=== PATIENT | female | born 1950 | race Two or more races ===

== ENCOUNTER 2025-01-10 12:20 | Emergency (ER) | payer OTHER ==
[~2025-01-10] VITALS: Ht 160 cm; Wt 93.9 kg
[2025-01-10] MEDS ORDERED: GLYXAMBI 25 MG1 EACH (12:53)
[2025-01-10] MEDS ORDERED: CALCITRIOL0.5 MCG (12:54)
[2025-01-10] MEDS ORDERED: PRILOSEC OTC20 MG (12:54)
[2025-01-10] MEDS ORDERED: LASIX20 MG (12:54)
[2025-01-10] MEDS ORDERED: KLOR-CON8 MEQ (12:54)
[2025-01-10] MEDS ORDERED: TOPROL XL100 M1 (12:55)
[2025-01-10] MEDS ORDERED: HYDROCHLOROTHIA25 MG (12:55)
[2025-01-10] MEDS ORDERED: LIPITOR40 M1 (12:55)
[2025-01-10] MEDS ORDERED: ATACAND32 MG (12:55)
[2025-01-10] MEDS ORDERED: ELIQUIS2.5 MG (12:56)
[2025-01-10] MEDS ORDERED: CARDURA XL4 MG (12:56)
[2025-01-10] MEDS ORDERED: UCERIS9 MG (12:56)
[2025-01-10] MEDS ORDERED: ANTIVERT25 M2 (12:56)
[2025-01-10] MEDS ORDERED: IPRATROPIUM BROMIDE 0.5 MG/2.5 ML AMPUL.NEB IH SCH (15:30)
[2025-01-10] MEDS ORDERED: LEVALBUTEROL HCL 1.25 MG/3 ML SOLUTION IH SCH (15:30)
[2025-01-10] MEDS ORDERED: GUAIFENESIN/DEXTROMETHORPHAN 100MG/10ML BLIST.PACK PO ONE (15:45)
[2025-01-10] MEDS ORDERED: BUDESONIDE 0.5 MG/2 ML AMPUL.NEB IH ONE (15:45)
[2025-01-10 16:40] LABS: BASO % 1.5 % (0.1-1.2); EOS # 0.46 (0.04-0.54); EOS % 5.4 % (0.7-7.0); LYMPH # 1.90 (1.18-3.74); LYMPH % 22.4 % (19.3-53.1); MEAN PLATELET VOLUME 9.50 fl (9.4-12.4); MONO # 0.83 (0.24-0.82); MONO % 9.8 % (4.7-12.5); NEUT # 5.11 (1.56-6.13); NEUT % 60.4 % (34.0-71.1); RED CELL DISTRIBUTION WIDTH 15.5 % (11.6-14.4)
[2025-01-10 17:00] LABS: COVID-19 AG NEGATIVE (NEGATIVE)
[2025-01-10 17:17] LABS: ALT/SGPT 44.0 U/L (12-78); AST/SGOT 39.0 U/L (15-37); BILIRUBIN TOTAL 0.49 mg/dL (0.3-1.2); BUN CREA RATIO 14.0 (7.0-25.0); CREATININE SERUM 1.31 mg/dL (0.55-1.02); GFR 39.69; GLOBULINA 3.6 G/DL (2.4-3.5); GLUCOSE FASTING 148.0 mg/dL (65-100); OSMOLALITY SERUM 280.0 MOSM/KG (275-295)
[2025-01-10 17:46] LABS: ABG PH 7.413 (7.35-7.45); ABG PO2 70.3 mmHg (80-100); BICARBONATE 23.9 mmol/l (23-25)
[2025-01-10 17:47] LABS: o2 21 %
[2025-01-10 18:16] LABS: URINE APPEARANCE Clear; URINE BILIRRUBIN Negative (NEGATIVE); URINE BLOOD Small; URINE COLOR Yellow; URINE KETONE Trace (NEGATIVE); URINE LEUKOCYTE Negative; URINE NITRATE Negative; URINE UROBILINOGEN 0.2 E.U./dl
[2025-01-10 18:19] LABS: URINE BACTERIA 962.2 uL (0.0-1933); URINE EPITHELIAL CELLS 49.5 uL (0.0-38.8); URINE RBC 43.2 uL (0.0-20.8); URINE WBC 14.6 uL (0.0-23.2)
[2025-01-10 18:43] LABS: URINE CAST 0.29 uL (0.0-1.40); URINE GLUCOSE >=1000 MG/DL (NEGATIVE); URINE PROTEIN 300 (NEGATIVE); URINE YEAST MODERATE /hpf
[2025-01-10] MEDS ORDERED: BUDESONIDE0.5 MG/2 M IH (21:36)
[2025-01-10] MEDS ORDERED: ZITHROMAX500 MG PO (21:36)
[2025-01-10] MEDS ORDERED: DIABETIC TUSSI118 ML PO (21:36)
[2025-01-10] MEDS ORDERED: LEVALBUTER1.25 MG/3 IH (21:36)
[2025-01-10] MEDS ORDERED: IPRATROPIU0.2 MG/1 M IH (21:36)
== END 2025-01-10 21:48 ==
LOC: ER 12:20
PROVIDERS: General Practice
DX: J06.9 Acute upper respiratory infection, unspecified (principal); I51.7 Cardiomegaly; E11.9 Type 2 diabetes mellitus without complications; Z79.84 Long term (current) use of oral hypoglycemic drugs; I10 Essential (primary) hypertension; Z88.8 Allergy status to other drugs, medicaments and biological substances; Z87.09 Personal history of other diseases of the respiratory system; Z20.822 Contact with and (suspected) exposure to COVID-19